=== PATIENT | female | born 1990 | race Asian ===

== ENCOUNTER 2020-11-18 20:52 | Emergency (ER) ==
[~2020-11-18] VITALS: Ht 162.6 cm; Wt 50.2 kg
== END 2020-11-19 01:47 | disposition left against medical advice (07) ==
LOC: M ED 20:52
DX: Z53.21 Procedure and treatment not carried out due to patient leaving prior to being seen by health care provider (principal)

== ENCOUNTER → 2020-11-25 | Outpatient (REF) | payer MEDICAID | LOC: M LAB REF 17:44 | PROVIDERS: ATTEND Advanced Practice Midwife | DX: O36.80X0 Pregnancy with inconclusive fetal viability, not applicable or unspecified (principal) ==

== ENCOUNTER → 2020-12-01 | Outpatient (CLI) | payer MEDICAID | LOC: M LAB 13:01 | PROVIDERS: ATTEND Advanced Practice Midwife | DX: O20.0 Threatened abortion (principal); Z3A.00 Weeks of gestation of pregnancy not specified ==

== ENCOUNTER → 2020-12-07 | Outpatient (REF) | payer MEDICAID | LOC: M LAB REF 16:59 | PROVIDERS: ATTEND Advanced Practice Midwife | DX: O20.0 Threatened abortion (principal) ==

== ENCOUNTER → 2023-10-12 | Outpatient (REF) | payer MEDICAID, OTHER ==
[2023-10-12 12:41] LABS: HEMATOCRIT 39.4 % (36.0-47.0); HEMOGLOBIN 12.8 g/dl (12.0-15.5); MEAN CORPUSCULAR HEMOGLOBIN 27.3 pg (27.0-33.0); MEAN CORPUSCULAR HGB CONC 32.5 g/dl (32.0-36.5); PLATELET COUNT, AUTOMATED 322 10^3/uL (150-450); RED BLOOD COUNT 4.69 10^6/uL (4.00-5.40); WHITE BLOOD COUNT 8.1 10^3/uL (4.0-10.0)
[2023-10-12 13:29] LABS: HEPATITIS B SURFACE ANTIGEN NEGATIVE (NEGATIVE)
[2023-10-12 13:42] LABS: HIV 1&2 SCREEN NEGATIVE (NEGATIVE)
[2023-10-12 13:49] LABS: HCG, SERUM QUANTITATIVE 15504.9 MIU/ML (<4.2); HEPATITIS C VIRUS ABY INDEX < 0.02 INDEX (<0.8)
== END ==
LOC: M LAB REF 12:10
PROVIDERS: ATTEND Obstetrics & Gynecology
DX: O36.80X0 Pregnancy with inconclusive fetal viability, not applicable or unspecified (principal); Z32.01 Encounter for pregnancy test, result positive; Z3A.00 Weeks of gestation of pregnancy not specified

== ENCOUNTER → 2023-10-26 | Outpatient (CLI) | payer MEDICAID, OTHER | LOC: M RAD 12:02 | PROVIDERS: ATTEND Obstetrics & Gynecology | DX: Z32.01 Encounter for pregnancy test, result positive (principal); O36.80X0 Pregnancy with inconclusive fetal viability, not applicable or unspecified; Z3A.01 Less than 8 weeks gestation of pregnancy ==

== ENCOUNTER → 2023-10-30 | Outpatient (REF) | payer OTHER, MEDICAID | LOC: M LAB REF 12:21 | PROVIDERS: ATTEND Obstetrics & Gynecology | DX: Z34.81 Encounter for supervision of other normal pregnancy, first trimester (principal) ==

== ENCOUNTER → 2023-11-09 | Outpatient (REF) | payer OTHER, MEDICAID | LOC: M LAB REF 12:05 | PROVIDERS: ATTEND Obstetrics & Gynecology | DX: Z34.01 Encounter for supervision of normal first pregnancy, first trimester (principal) ==

== ENCOUNTER → 2024-02-12 | Outpatient (CLI) | payer OTHER | LOC: M WHC 08:41 | PROVIDERS: ATTEND Advanced Practice Midwife | DX: Z34.82 Encounter for supervision of other normal pregnancy, second trimester (principal) ==

== ENCOUNTER 2024-02-24 05:33 | Emergency (ER) | payer OTHER ==
[~2024-02-24] VITALS: Ht 162.6 cm; Wt 57.9 kg
[2024-02-24 05:36] VITALS: BP 120/59; TEMP 97.5; O2SAT 100
[2024-02-24] MEDS ORDERED: PRENTAB9 PO (07:18)
[2024-02-24] MEDS ORDERED: ONDANSETRON 4MG ORAL DISINTEGRATING TAB PO ONE (08:00)
[2024-02-24] MEDS ORDERED: CYCLOBENZAPRINE 10MG TABLET PO ONE (08:00)
== END 2024-02-24 05:51 | disposition admitted as inpatient to this hospital (09) ==
LOC: M ED 05:33
DX: O99.891 Other specified diseases and conditions complicating pregnancy (principal); Z53.21 Procedure and treatment not carried out due to patient leaving prior to being seen by health care provider

== ENCOUNTER 2024-02-24 05:52 | Outpatient (CLI) | payer OTHER ==
[~2024-02-24] VITALS: Ht 160 cm; Wt 58.1 kg
[2024-02-24 06:24] VITALS: BP 103/60
[2024-02-24] MEDS ORDERED: PRENTAB9 PO (07:18)
[2024-02-24] MEDS ORDERED: HOME MED LIST COMPLETE! XX SCH (07:20)
[2024-02-24 07:39] LABS: APPEARANCE, URINE CLEAR (CLEAR); BACTERIA, URINE AUTO NEGATIVE (NEGATIVE); BILIRUBIN, URINE AUTO NEGATIVE (NEGATIVE); BLOOD, URINE BLOOD NEGATIVE (NEGATIVE); COLOR, URINE STRAW (YELLOW); GLUCOSE, URINE (UA) AUTO NEGATIVE (NEGATIVE); KETONE, URINE AUTO NEGATIVE (NEGATIVE); LEUKOCYTE ESTERASE, URINE AUTO TRACE (NEGATIVE); NITRITE, URINE AUTO NEGATIVE (NEGATIVE); PROTEIN, URINE AUTO NEGATIVE (NEGATIVE); RBC, URINE AUTO 0 /HPF (0-3); SPECIFIC GRAVITY URINE AUTO 1.004 (1.002-1.035); SQUAMOUS EPITHELIAL CELL UR AU 2 /HPF (0-6); UROBILINOGEN, URINE AUTO 0.2 mg/dL (0.0-2.0); WBC, URINE AUTO 1 /HPF (0-3)
[2024-02-24] MEDS: CYCLOBENZAPRINE 10MG TABLET PO ONE (07:43)
[2024-02-24] MEDS: ONDANSETRON 4MG ORAL DISINTEGRATING TAB PO PRN (07:44)
[2024-02-24 07:47] VITALS: BP 108/54
[2024-02-24 07:54] LABS: HEMATOCRIT 32.3 % (36.0-47.0); HEMOGLOBIN 10.8 g/dl (12.0-15.5); MEAN CORPUSCULAR HEMOGLOBIN 29.3 pg (27.0-33.0); MEAN CORPUSCULAR HGB CONC 33.4 g/dl (32.0-36.5); MEAN CORPUSCULAR VOLUME 87.8 fl (80.0-96.0); PLATELET COUNT, AUTOMATED 266 10^3/uL (150-450); RED BLOOD COUNT 3.68 10^6/uL (4.00-5.40); WHITE BLOOD COUNT 12.1 10^3/uL (4.0-10.0)
[2024-02-24 08:35] LABS: ALBUMIN 2.9 G/DL (3.2-5.2); ALKALINE PHOSPHATASE 85 U/L (35-104); ALT/SGPT 13 U/L (7.0-40); AST/SGOT 13 U/L (<34); BILIRUBIN,TOTAL 0.3 MG/DL (0.3-1.2); BLOOD UREA NITROGEN < 5 MG/DL (9-23); CALCIUM LEVEL 9.2 MG/DL (8.5-10.1); CARBON DIOXIDE LEVEL 26 MMOL/L (20-31); CHLORIDE LEVEL 107 MMOL/L (98-107); CREATININE FOR GFR 0.45 MG/DL (0.55-1.30); GLOMERULAR FILTRATION RATE > 60.0 (>60); GLUCOSE, FASTING 95 MG/DL (60-100); POTASSIUM SERUM 3.8 MMOL/L (3.5-5.1); SODIUM LEVEL 141 MMOL/L (136-145); TOTAL PROTEIN 6.5 G/DL (5.7-8.2)
== END 2024-02-24 08:40 | disposition home or self-care (01) ==
LOC: M LDO 05:52
PROVIDERS: ATTEND Advanced Practice Midwife
DX: O26.892 Other specified pregnancy related conditions, second trimester (principal); O21.8 Other vomiting complicating pregnancy; M54.50 Low back pain, unspecified; Z3A.24 24 weeks gestation of pregnancy
CPT/HCPCS: 36415; 59025; 80053; 81001; 85027; 87086; G0463

== ENCOUNTER → 2024-03-13 | Outpatient (CLI) | payer OTHER ==
[~2024-03-13] MED LIST: PRENTAB9 PO
[2024-03-13 18:16] LABS: HEMATOCRIT 32.8 % (36.0-47.0); HEMOGLOBIN 10.5 g/dl (12.0-15.5); MEAN CORPUSCULAR HEMOGLOBIN 28.5 pg (27.0-33.0); MEAN CORPUSCULAR VOLUME 88.9 fl (80.0-96.0); PLATELET COUNT, AUTOMATED 292 10^3/uL (150-450); RED BLOOD COUNT 3.69 10^6/uL (4.00-5.40)
[2024-03-14 07:02] LABS: WHITE BLOOD COUNT 8.8 10^3/uL (4.0-10.0)
== END ==
LOC: M WUC 10:33
PROVIDERS: ATTEND Obstetrics & Gynecology
DX: Z34.82 Encounter for supervision of other normal pregnancy, second trimester (principal); Z3A.00 Weeks of gestation of pregnancy not specified

== ENCOUNTER → 2024-05-16 | Outpatient (REF) | payer OTHER | LOC: M LAB REF 16:58 | PROVIDERS: ATTEND Obstetrics & Gynecology | DX: Z34.83 Encounter for supervision of other normal pregnancy, third trimester (principal) ==

== ENCOUNTER → 2024-05-20 | Outpatient (CLI) | payer OTHER | LOC: M WHC 11:27 | PROVIDERS: ATTEND Obstetrics & Gynecology | DX: Z34.83 Encounter for supervision of other normal pregnancy, third trimester (principal); Z3A.36 36 weeks gestation of pregnancy ==

== ENCOUNTER 2024-06-17 07:43 | Inpatient (IN) | payer OTHER ==
[2024-06-17] VITALS (31 sets, daily range): BP systolic 89–123; BP diastolic 46–87; O2SAT 96–99
[~2024-06-17] VITALS: Ht 167.6 cm; Wt 64.7 kg
[2024-06-17] MEDS: LACTATED RINGER'S 1000 ML IV STA (08:16)
[2024-06-17] MEDS ORDERED: METHYLERGONOVINE MALEATE 0.2MG/ML 1ML VIAL IM PRN (08:20)
[2024-06-17] MEDS ORDERED: OXYTOCIN DRIP 30 UNITS in IV 1 EA IV PRN (08:20)
[2024-06-17] MEDS ORDERED: TRANEXAMIC ACID INJection 1,000 MG in NS 100 ML IV PRN (08:20)
[2024-06-17] MEDS ORDERED: LIDOCAINE 1% MDV 20ML VIAL INFIL PRN (08:20)
[2024-06-17] MEDS ORDERED: OXYTOCIN INJ 10UNITS/ML 1ML VIAL IM PRN (08:20)
[2024-06-17] MEDS ORDERED: CARBOPROST TROMETHAMINE 250 MCG/ML AMP IM PRN (08:20)
[2024-06-17] MEDS ORDERED: TUMS500C PO (09:00)
[2024-06-17] MEDS ORDERED: HOME MED LIST COMPLETE! XX SCH (09:05)
[2024-06-17 09:09] LABS: HEMATOCRIT 40.1 % (36.0-47.0); HEMOGLOBIN 13.5 g/dl (12.0-15.5); MEAN CORPUSCULAR HEMOGLOBIN 30.5 pg (27.0-33.0); MEAN CORPUSCULAR HGB CONC 33.7 g/dl (32.0-36.5); MEAN CORPUSCULAR VOLUME 90.7 fl (80.0-96.0); PLATELET COUNT, AUTOMATED 218 10^3/uL (150-450); RED BLOOD COUNT 4.42 10^6/uL (4.00-5.40); WHITE BLOOD COUNT 8.4 10^3/uL (4.0-10.0)
[2024-06-17] MEDS: LR 1,000 ML IV SCH (09:11)
[2024-06-17 09:38] LABS: HIV 1&2 SCREEN NEGATIVE (NEGATIVE)
[2024-06-17 09:46] LABS: HEPATITIS C VIRUS ABY INDEX < 0.02 INDEX (<0.8)
[2024-06-17] MEDS: OXYTOCIN DRIP 30 UNITS in IV 1 EA IV SCH (11:57)
[2024-06-17] MEDS: MORPHINE 4 MG/ML 1ML VIAL IV ONE (19:35)
[2024-06-17] MEDS: PROMETHAZINE 25MG/ML 1ML VIAL IV ONE (19:35)
[2024-06-17] MEDS ORDERED: ePHEDrine SULFATE 25 MG/5 ML(5MG/ML) SYRINGE IVP PRN (22:15)
[2024-06-17] MEDS ORDERED: LR 500 ML IV PRN (22:15)
[2024-06-17] MEDS ORDERED: EPIDURAL/PCA KEYS XX PRN (22:15)
[2024-06-17] MEDS ORDERED: diphenhydrAMINE 50MG/ML VIAL IV PRN (22:15)
[2024-06-17] MEDS ORDERED: NALOXONE INJ 0.4MG/1ML VIAL IV PRN (22:15)
[2024-06-17] MEDS ORDERED: ONDANSETRON 4MG 2ML VIAL IV PRN (22:15)
[2024-06-18] VITALS (29 sets, daily range): BP systolic 88–126; BP diastolic 49–83; TEMP 97.9; O2SAT 98–100
[2024-06-18] MEDS: FENTANYL/ROPIVACAINE/NACL BAG 100 ML EPIDURAL SCH (00:46)
[2024-06-18] MEDS: BICITRA 30ML SOLN UDC PO ONE (04:00)
[2024-06-18] MEDS: AZITHROMYCIN INJ 500 MG, VIAL MATE ADAPTER 1 EACH in NS 250 ML IV ONE (04:05)
[2024-06-18] MEDS: ceFAZolin SODIUM 2 GM in DEXTROSE 5% (D5W) ADV/MINI-BAG 50 ML IV ONE (04:05)
[2024-06-18] MEDS ORDERED: MORPHINE PRES-FREE INJ 10 MG/10 ML VIAL As Ordered ONE (04:52)
[2024-06-18] MEDS ORDERED: PHENYLephrine 500MCG 5ML (100MCG/ML) SYRINGE As Ordered ONE (04:57)
[2024-06-18] MEDS ORDERED: KETOROLAC 30 MG/ML 1ML VIAL As Ordered ONE (04:57)
[2024-06-18] MEDS ORDERED: ONDANSETRON 4MG 2ML VIAL As Ordered ONE (05:01)
[2024-06-18 05:13] LABS: CORD GAS HCO3 A 23.4 MMOL/L; CORD GAS O2 SAT A 43.7 %; CORD GAS PCO2 A 55.5 mmHg; CORD GAS PH A 7.243 UNITS; CORD GAS PO2 A 25.1 mmHg; CORD GAS TCO2 A 25.1 MMOL/L
[2024-06-18 05:15] LABS: CORD GAS ABE V -5.6; CORD GAS HCO3 V 19.2 MMOL/L; CORD GAS O2 SAT V 73.7 %; CORD GAS PCO2 V 36.1 mmHg; CORD GAS PH V 7.343 UNITS; CORD GAS PO2 V 35.1 mmHg; CORD GAS SBC V 19.3 MMOL/L; CORD GAS TCO2 V 20.3 MMOL/L
[2024-06-18] MEDS ORDERED: OXYTOCIN 30UNITS IN 0.9% NaCl 500ML IV BAG As Ordered ONE (05:27)
[2024-06-18] MEDS ORDERED: SIMETHICONE 80MG CHEW TAB PO PRN (05:30)
[2024-06-18] MEDS ORDERED: ONDANSETRON 4MG 2ML VIAL IV PRN ×2 (05:30→05:55)
[2024-06-18] MEDS ORDERED: ePHEDrine SULFATE 25 MG/5 ML(5MG/ML) SYRINGE As Ordered ONE (05:43)
[2024-06-18] MEDS ORDERED: **NOTE PATIENT COMMENT** MISC XX SCH (05:55)
[2024-06-18] MEDS ORDERED: NALOXONE INJ 0.4MG/1ML VIAL IV PRN ×2 (05:55)
[2024-06-18] MEDS ORDERED: METOCLOPRAMIDE INJ 10MG/2ML VIAL IV PRN (05:55)
[2024-06-18] MEDS ORDERED: fentaNYL 100 MCG/2 ML INJECTION IV PRN (05:55)
[2024-06-18] MEDS: ePHEDrine SULFATE 25 MG/5 ML(5MG/ML) SYRINGE IV PRN (06:06)
[2024-06-18] MEDS: diphenhydrAMINE 50MG/ML VIAL IV PRN (09:08)
[2024-06-18] MEDS: PRENATAL VITAMINS CHEWABLE TABLET PO SCH (09:08)
[2024-06-18] MEDS: LR 1,000 ML IV SCH (10:21)
[2024-06-18] MEDS: KETOROLAC 30 MG/ML 1ML VIAL IV SCH (11:29)
[2024-06-18] MEDS: SLF 3 ML SYR IV SCH (18:15)
[2024-06-18] MEDS ORDERED: OXYC1TAB23 PO (18:57)
[2024-06-18] MEDS ORDERED: COLA100C5 PO (18:57)
[2024-06-18] MEDS ORDERED: IBUP80TA PO (18:57)
[2024-06-19 02:00] VITALS: BP 102/62; O2SAT 100
[2024-06-19 06:00] VITALS: BP 117/65; O2SAT 100
[2024-06-19 06:48] LABS: HEMATOCRIT 32.2 % (36.0-47.0); MEAN CORPUSCULAR HEMOGLOBIN 30.9 pg (27.0-33.0); MEAN CORPUSCULAR HGB CONC 33.5 g/dl (32.0-36.5); MEAN CORPUSCULAR VOLUME 92.3 fl (80.0-96.0); PLATELET COUNT, AUTOMATED 166 10^3/uL (150-450); RED BLOOD COUNT 3.49 10^6/uL (4.00-5.40); WHITE BLOOD COUNT 12.1 10^3/uL (4.0-10.0)
[2024-06-19 06:49] LABS: HEMOGLOBIN 10.8 g/dl (12.0-15.5)
[2024-06-19] MEDS: RHOGAM 300MCG (1500IU) INJ IM SCH (07:29)
[2024-06-19] MEDS: PERCOCET 5MG/325MG TAB PO PRN ×2 (08:17→17:12)
[2024-06-19] MEDS: IBUPROFEN 800 MG TAB PO SCH (08:17)
[2024-06-19 10:25] VITALS: BP 113/59; O2SAT 98
[2024-06-19 13:55] VITALS: BP 121/57; O2SAT 100
[2024-06-19] MEDS: DOCUSATE SODIUM 100MG CAPSULE PO PRN (17:12)
[2024-06-19 17:52] VITALS: BP 110/64; O2SAT 100
[2024-06-19 22:07] VITALS: BP 105/54; O2SAT 100
[2024-06-20 02:05] VITALS: BP 104/73; O2SAT 99
[2024-06-20 05:59] VITALS: BP 111/68; O2SAT 99
[2024-06-20] MEDS: MEASLES,MUMPS,RUBELLA VACCINE INJ (MMR-II) SC.IMMUN ONE (07:23)
[2024-06-20 10:11] VITALS: BP 133/73; O2SAT 100
== END 2024-06-20 14:24 | disposition home or self-care (01) | DRG 540 ==
LOC: M LDI 07:43 → M OBS 06-18 07:21
PROVIDERS: ADMIT Advanced Practice Midwife; ATTEND Advanced Practice Midwife
PROC: 3E033VJ Introduction of Other Hormone into Peripheral Vein, Percutaneous Approach (ICD-10-PCS; 2024-06-17)
PROC: 3E0P7GC Introduction of Other Therapeutic Substance into Female Reproductive, Via Natural or Artificial Opening (ICD-10-PCS; 2024-06-17)
PROC: 10907ZC Drainage of Amniotic Fluid, Therapeutic from Products of Conception, Via Natural or Artificial Opening (ICD-10-PCS; 2024-06-18)
PROC: 10D00Z1 Extraction of Products of Conception, Low, Open Approach (ICD-10-PCS; principal; 2024-06-18 04:09)
DX: O48.0 Post-term pregnancy (principal); O62.0 Primary inadequate contractions; Z37.0 Single live birth; Z3A.40 40 weeks gestation of pregnancy